=== PATIENT | female | born 1960 | race Caucasian/White ===

== ENCOUNTER → 2019-02-26 | Outpatient (CLI) | payer MEDICARE, OTHER ==
--- NOTE | 2019-02-26 14:40 | XR ---
EXAMINATION TYPE: XR cervical spine comp DATE OF EXAM: 02/26/2019 COMPARISON: NONE HISTORY: Pain TECHNIQUE: Four views are submitted. FINDINGS: The odontoid is intact. There are no compression deformities. The prevertebral soft tissue structur es are within normal limits. Hypertrophic and degenerative changes C5-6 and C6-C7 with multilevel fa cet arthropathy. Foraminal encroachment level suspected. IMPRESSION: 1. Significant degenerative disc disease C5-6 and C6-C7 with the multilevel facet arthropathy. Bilate ral foraminal encroachment suspected correlate with MRI.
--- NOTE | 2019-02-26 14:41 | XR ---
EXAM TYPE: LUMBAR SPINE X RAY SERIES COMPARISON: NONE HISTORY: Pain TECHNIQUE: 4 views are submitted. FINDINGS: Alignment is anatomic. The pedicles are intact. The transverse processes are intact. There is no s pondylolysis or spondylolisthesis. Hypertrophic and degenerative changes of the spine with facet art hropathy particularly marked at L5-S1. No compression deformities. IMPRESSION: 1. Severe facet arthropathy L5-S1 with suspected foraminal encroachment. 2. Mild multilevel degenerative disc disease.
== END | disposition home or self-care (01) ==
LOC: RADXRMAIN 13:44
PROVIDERS: ATTEND Physical Medicine & Rehabilitation
DX: M51.16 Intervertebral disc disorders with radiculopathy, lumbar region (principal); M50.322 Other cervical disc degeneration at C5-C6 level; M46.92 Unspecified inflammatory spondylopathy, cervical region
CPT/HCPCS: 72050; 72110

== ENCOUNTER → 2019-04-02 | Outpatient (CLI) | payer MEDICARE, OTHER ==
--- NOTE | 2019-04-02 09:53 | MR ---
EXAMINATION TYPE: MR lumbar spine wo con DATE OF EXAM: 04/02/2019 COMPARISON: X-rays 02/26/2019 HISTORY: Cervical DD, Lumbar DD TECHNIQUE: T1 and T2 axial and sagittal images of the lumbar spine are submitted. FINDINGS: Exam severely limited due to severe motion artifact. There is heterogeneous marrow signal w hich is nonspecific. There is no abnormal signal seen within the visualized spinal cord or paraspinal soft tissues. Nonspecific subcentimeter nodularity of the left adrenal gland. At L1-2 there is no disc herniation or canal stenosis. No foraminal encroachment. At L2-3 there is no disc herniation or canal stenosis. No foraminal encroachment. At L3-4 there is no disc herniation or canal stenosis. No foraminal encroachment. At L4-5 there is no disc herniation or canal stenosis. No foraminal encroachment. There is facet arth ropathy and ligamentum flavum hypertrophy. At L5-S1 there is disc desiccation with facet arthropathy. No focal herniation or canal stenosis. Iraida ral foramina patent. IMPRESSION: 1. Degenerative disc disease L5-S1 with facet arthropathy but no evidence of disc herniation, canal s tenosis or foraminal encroachment at any of the visualized levels. 2. Suspected small gallstone. EXAMINATION TYPE: MR cspine/lspine wo con DATE OF EXAM: 04/02/2019 COMPARISON: NONE HISTORY: Cervical DD, Lumbar DD TECHNIQUE: T1 sagittal and coronal, T2 sagittal, and gradient echo axial views of the cervical spine are submitted. FINDINGS: Exam severely limited due to motion artifact. There is asymmetry of the oropharynx on the r ight near the base of the tongue as well as the nasopharynx. Mucosal lesion in the differential diagn osis. CT soft tissue neck recommended. The cranial cervical junction is preserved. There is no abnor mal signal seen within the spinal cord or paraspinal soft tissues. At C2-3 there is degenerative change of the spine with posterior spondylosis and uncovertebral joint hypertrophy. Mild right-sided foraminal encroachment. Facet arthropathy noted. At C3-4 there is central disc bulging with no evidence of canal stenosis. Mild uncovertebral joint hy pertrophy and facet arthropathy. No foraminal encroachment. At C4-5 there is degenerative disc disease and mild central disc bulging with facet arthropathy. Unco vertebral joint hypertrophy on the right with mild right-sided encroachment. No Canal stenosis. At C5-6 there is severe degenerative disc disease with broad-based disc protrusion capped by spur. Fa cet arthropathy and uncovertebral joint hypertrophy contribute to moderate canal stenosis and moderat e to severe bilateral foraminal encroachment. At C6-7 there is central disc protrusion or herniation capped by spur with placement of the thecal sa c. Uncovertebral joint hypertrophy contribute to bilateral moderate foraminal encroachment and canal stenosis. At C7-T1 there is right paracentral disc bulging with no evidence of canal stenosis or foraminal encr oachment. IMPRESSION: 1. There is marked asymmetry of the soft tissues of the nasopharynx and oropharynx particularly on t he right. A mucosal lesion or mass in the differential diagnosis. Recommend CT soft tissue of the nec k. 2. Multilevel moderate to severe degenerative disc disease with multilevel disc bulging or protrusion s. Most marked findings are seen at C5-6 and C6-C7 with moderate canal stenosis and bilateral forami nal encroachment. 3. Right paracentral disc bulging C7-T1 with no canal stenosis or foraminal encroachment. 4. Heterogeneous appearance to the thyroid for which dedicated ultrasound of the thyroid recommended.
== END | disposition home or self-care (01) ==
LOC: RADMRIMAIN 08:20
PROVIDERS: ATTEND Family Medicine
DX: M46.96 Unspecified inflammatory spondylopathy, lumbar region (principal); M48.02 Spinal stenosis, cervical region; M51.36 Other intervertebral disc degeneration, lumbar region; M50.30 Other cervical disc degeneration, unspecified cervical region
CPT/HCPCS: 72141; 72148

== ENCOUNTER → 2019-04-27 | Outpatient (CLI) | payer MEDICARE, OTHER ==
--- NOTE | 2019-04-27 09:20 | US ---
EXAMINATION TYPE: US thyroid st tissue head/neck DATE OF EXAM: 04/27/2019 COMPARISON: NONE CLINICAL HISTORY: R93.7 abnormal MRI. GLAND SIZE: Right Lobe: cm Overall Parenchyma: Left Lobe: cm Overall Parenchyma: Isthmus Thickness: cm NODULES RIGHT: # of nodules measured on right: 1. X x cm nodule at the pole with margins; . This nodule is and shows . Prior size: x x cm 2. X x cm nodule at the pole with margins; . This nodule is and shows . Prior size: x x cm 3. X x cm nodule at the pole with margins; . This nodule is and shows . Prior size: x x cm 4. X x cm nodule at the pole with margins; . This nodule is and shows . Prior size: x x cm LEFT: # of nodules measured on left: 1. X x cm nodule at the pole with margins; . This nodule is and shows . Prior size: x x cm 2. X x cm nodule at the pole with margins; . This nodule is and shows . Prior size: x x cm 3. X x cm nodule at the pole with margins; . This nodule is and shows . Prior size: x x cm 4. X x cm nodule at the pole with margins; . This nodule is and shows . Prior size: x x cm ISTHMUS: # of nodules measured in the isthmus: 1. X x cm nodule at the pole with margins; . This nodule is and shows . Prior size: x x cm Bilateral neck scanned, no evidence of lymphadenopathy. IMPRESSION: EXAMINATION TYPE: US thyroid st tissue head/neck DATE OF EXAM: 04/27/2019 COMPARISON: NONE CLINICAL HISTORY: R93.7 abnormal MRI. GLAND SIZE: Right Lobe: 4.3 x 1.9 x 1.7 cm Overall Parenchyma: heterogenous Left Lobe: 4.3 x 2.9 x 2.2 cm Overall Parenchyma: heterogeneous Isthmus Thickness: 0.4 cm NODULES RIGHT: # of nodules measured on right: 2 1. 1.0 X 0.8 x 1.0 cm anechoic cystic nodule at the mid pole with well-defined margins. This nodul e is wider than tall and shows no intranodular vascularity. No prior 2. 1.3 X 0.8 x 0.8 cm isoechoic solid nodule at the mid-lower pole with well-defined margins. This n odule is wider than tall and shows no intranodular vascularity. No prior LEFT: # of nodules measured on left: 1 1. 2.5 X 1.9 x 2.3 cm isoechoic solid nodule at the mid pole with well-defined margins. This nodul e is wider than tall and shows intranodular vascularity. No prior ISTHMUS: # of nodules measured in the isthmus: 0 Bilateral neck scanned, no evidence of lymphadenopathy. IMPRESSION: Multinodular thyroid changes
--- NOTE | 2019-04-27 10:00 | CT ---
EXAMINATION TYPE: CT soft tissue neck w con DATE OF EXAM: 04/27/2019 COMPARISON: None HISTORY: abn MRI CT DLP: 538.1 mGycm CONTRAST: Patient injected with 100 mL of Isovue 300. TECHNIQUE: Axial images at 3 mm thick sections. Reconstructed images in the coronal plane and sagitt al plane are reviewed. FINDINGS: Limited CT sections are obtained the lung apices. There is a 0.3 cm calcification in the r ight posterior superior segment lower lobe. CT neck: [employer] spaces are normal. Paranasal sinuses and mastoid air cells are clear. Parotid glands appear normal and symmetrical. Submandibular glands, are normal. Parapharyngeal spac es are normal. No suspicious adenopathy is evident. There are scattered shotty lymphadenopathy withi n the submental space. Shotty lymphadenopathy in the submandibular regions. The hypopharynx appears within normal limits. Vocal cord level appear symmetrical. Thyroid is enlarged and heterogenous. A large slightly hypodense mass appears to be in the mid to inf erior left lobe thyroid. This was evaluated 04/27/2019 by ultrasound. There is marked right septal deviation. There is opacification of the posterior nasopharynx. Torus tubarius and fossa of Rosenmuller cannot b e evaluated. Additional evaluation for a mass within the posterior nasopharynx is recommended. IMPRESSIONS: 1. Posterior nasopharynx opacification. Prominent adenoid, neoplasm or mass is within the differentia l. Additional workup is recommended. 2. Septal deviation. 3. Calcified granuloma right lung 4. Heterogenous enlarged thyroid. This was evaluated 05/07/2019.
== END ==
LOC: RADCTMAIN 07:24
PROVIDERS: ATTEND Family Medicine
DX: E04.2 Nontoxic multinodular goiter (principal); J34.2 Deviated nasal septum; J84.10 Pulmonary fibrosis, unspecified; R93.89 Abnormal findings on diagnostic imaging of other specified body structures
CPT/HCPCS: 76536; 70491; Q9967

== ENCOUNTER 2019-05-28 09:21 | Day surgery (SDC) | payer MEDICARE, OTHER ==
[2019-05-28 09:47] VITALS: TEMP 97.9
[2019-05-28 11:32] VITALS: RESP 14
[2019-05-28 11:33] VITALS: BP 158/69; PULSE 68
--- NOTE | 2019-05-28 11:36 | US ---
ULTRASOUND GUIDED FNA THYROID BIOPSY: CLINICAL HISTORY: Thyroid nodule FINDINGS: The procedure was explained to the patient. The risks, complications, benefits and alternatives were discussed and any questions were answered. Informed consent was obtained. Patient was placed supin e on the ultrasound table and prepped and draped in the usual sterile fashion. Utilizing a 25 gauge needle, five passes were made into the requested left thyroid nodule and requested right thyroid nodu le. Aspiration with 2 passes performed into the simple appearing 1 cm cyst within the right lobe the thyroid. Patient was stable throughout the procedure. Pathology is pending. All elements of maximal barrier technique were utilized. IMPRESSION: 1. Successful ultrasound guided FNA thyroid biopsy.
== END 2019-05-28 11:20 | disposition home or self-care (01) ==
LOC: RADPROMAIN 09:21
PROVIDERS: ATTEND Otolaryngology
DX: E04.2 Nontoxic multinodular goiter (principal)
CPT/HCPCS: 10005; 10006; 88173; 88305

== ENCOUNTER 2019-06-10 06:34 | Day surgery (SDC) | payer MEDICARE, OTHER ==
[2019-06-08 10:24] VITALS: BMI 37.8
[~2019-06-10 06:34] MED LIST: DEXAMETHASONE SOD PHOSPHATE 10 MG/ML 1 ML VIAL IV ONE; DEXAMETHASONE SOD PHOSPHATE 4 MG/ML 1 ML VIAL IV ONE; FAMOTIDINE 20 MG/2 ML VIAL IV ONE; HYDROmorphone 0.5 MG/0.5 ML SYRINGE IVP PRN; LACTATED RINGERS 1,000 ML IV SCH; LIDOCAINE 1% 20 ML VIAL (10MG/ML) FOR IV START INTRADERMA PRN; ONDANSETRON 4 MG/2 ML VIAL IVP ONE
[2019-06-10] MEDS: OXYMETAZOLINE 0.05% NASL SPRAY 1 SPRAY BOTTLE NASAL ONE ×5 (06:50→07:11)
[2019-06-10] MEDS ORDERED: fentaNYL (PF) 50 MCG/ML 2 ML AMP ONE (07:22)
[2019-06-10] MEDS ORDERED: NEOSTIGMINE 1 MG/ML 10 ML VIAL ONE (07:22)
[2019-06-10] MEDS ORDERED: ROCURONIUM BROMIDE 10 MG/ML 10 ML VIAL IV ONE (07:22)
[2019-06-10] MEDS ORDERED: GLYCOPYRROLATE 0.2 MG/ML 2 ML VIAL ONE (07:22)
[2019-06-10] MEDS ORDERED: PROPOFOL 10 MG/ML 20 ML VIAL IV ONE (07:22)
[2019-06-10] MEDS ORDERED: MIDAZOLAM 2 MG/2 ML VIAL ONE (07:22)
[2019-06-10] MEDS ORDERED: LIDOCAINE 1% INJ 10MG/ML (20 ML MDV) ONE (07:22)
--- NOTE | 2019-06-10 07:58 | P.OP ---
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 Postoperative Diagnosis: Same Procedure(s) Performed: Adenoidectomy/nasopharyngeal biopsy Anesthesia: MECCAA Surgeon: Ravi Oliveira Estimated Blood Loss (ml): 5 Pathology: other (Nasopharyngeal tissue) Condition: stable Disposition: PACU Indications for Procedure: This 59-year-old white female who was evaluated with computed tomography scan of the neck for neck mass and was noted of thyroid nodules which were already biopsied and were benign and also nasopharyngeal tissue which was hypertrophied Operative Findings: Lymphoid appearing nasopharyngeal tissue this was located superiorly and laterally in the nasopharynx Description of Procedure: Patient was brought in the operative suite and placed in a supine position. Patient underwent induction of general anesthesia with oral endotracheal intubation with out difficulty. The patient was prepped and draped in usual aseptic fashion. McIvor mouthgag was placed and soft palate was palpated and no submucous cleft was noted. Red Sanchez catheter was placed through the left nasal cavity and pulled through the oropharynx for soft palate retraction. Nasal fractures examined with mirror exam. Nasopharyngeal biopsy was taken with an adenoid punch. The remainder of the adenoid appearing tissue was then ablated with suction cautery clearing the posterior choanae. Excellent hemostasis was noted. The patient was then suctioned in oral gastric fashion and the McIvor mouth gag and catheter was removed. The patient was then allowed to emerge from general anesthesia having tolerated procedure well was extubated in the operating suite and transferred to the postop recovery area in satisfactory condition.
[2019-06-10 08:11] VITALS: TEMP 97.2
[2019-06-10 08:40] VITALS: RESP 16
[2019-06-10 08:56] VITALS: PULSE 65
[2019-06-10 09:01] VITALS: BP 183/84
== END 2019-06-10 09:11 | disposition home or self-care (01) ==
LOC: OR 06:34
PROVIDERS: ATTEND Otolaryngology
DX: J35.2 Hypertrophy of adenoids (principal); D10.6 Benign neoplasm of nasopharynx; I10 Essential (primary) hypertension; Z79.899 Other long term (current) drug therapy; Z82.61 Family history of arthritis; Z83.3 Family history of diabetes mellitus; Z96.659 Presence of unspecified artificial knee joint
CPT/HCPCS: 88305; 42831; J2250; J1100; J2710; J2405; J0690; J2001; J3010; J2704

== ENCOUNTER → 2020-01-26 | Outpatient (CLI) | payer MEDICARE, OTHER ==
--- NOTE | 2020-01-28 08:37 | MM ---
Reason for exam: screening (asymptomatic). Last mammogram was performed 5 years ago. History: Patient is postmenopausal. Physical Findings: A clinical breast exam by your physician is recommended on an annual basis and results should be correlated with mammographic findings. MG Screening Mammo w CAD Bilateral CC and MLO view(s) were taken. Prior study comparison: January 27, 2015, bilateral MG screening mammo w CAD. December 25, 2013, bilateral MG screening mammo w CAD. The breast tissue is heterogeneously dense. This may lower the sensitivity of mammography. There is chronic nodularity in the right breast. Lower inner quadrant nodularity on the right breast is more pronounced. ASSESSMENT: Incomplete: need additional imaging evaluation, BI-RAD 0 RECOMMENDATION: Special view mammogram of the right breast. (3D) If lesion persists on supplemental views, image directed ultrasound is recommended. [facility] will attempt to contact patient to return for supplemental views and ultrasound if indicated.
== END | disposition home or self-care (01) ==
LOC: RADMAMWWP 15:08
PROVIDERS: ATTEND Family Medicine
DX: Z12.31 Encounter for screening mammogram for malignant neoplasm of breast (principal)
CPT/HCPCS: 77067

== ENCOUNTER → 2020-01-29 | Outpatient (CLI) | payer MEDICARE, OTHER ==
--- NOTE | 2020-01-29 10:33 | MM ---
Reason for exam: additional evaluation requested from abnormal screening. Last mammogram was performed less than 1 month ago. History: Patient is postmenopausal. Taking estrogen for 5 years beginning at age 54. Physical Findings: Nurse did not find any significant physical abnormalities on exam. MG 3D Work Up W/Cad RT Spot compression CC and spot compression MLO view(s) were taken of the right breast. Prior study comparison: January 26, 2020, bilateral MG screening mammo w CAD. January 27, 2015, bilateral MG screening mammo w CAD. There are scattered fibroglandular densities. There is no discrete abnormality. These results were verbally communicated with the patient and result sheet given to the patient on 01/29/20. ASSESSMENT: Benign, BI-RAD 2 RECOMMENDATION: Return to routine screening mammogram schedule for both breasts.
== END | disposition home or self-care (01) ==
LOC: RADMAMWWP 09:07
PROVIDERS: ATTEND Family Medicine
DX: R92.8 Other abnormal and inconclusive findings on diagnostic imaging of breast (principal)
CPT/HCPCS: 77065; G0279; 77061

== ENCOUNTER → 2020-03-22 | Outpatient (CLI) | payer MEDICARE, OTHER ==
--- NOTE | 2020-03-22 14:02 | US ---
EXAMINATION TYPE: US thyroid st tissue head/neck DATE OF EXAM: 03/22/2020 COMPARISON: 04/27/2019 CLINICAL HISTORY: 59-year-old female E04.1 Thyroid nodule. Prior FNA. TECHNIQUE: Multiple sonographic images of the thyroid gland are obtained. FINDINGS: GLAND SIZE: Right Lobe: 4.3 x1.8 c 1.7 cm Overall Parenchyma: heterogenous Left Lobe: 4.2 x 2.4 x 2.5 cm Overall Parenchyma: heterogeneous Isthmus Thickness: 0.4cm NODULES RIGHT: # of nodules measured on right: 2 largest of multiple nodules 1. 0.7 X 0.7 x 0.5 cm benign colloid cyst. This nodule is wider than tall and shows no intranodular vascularity. Prior size: 1.0 x 1.0 x .7 cm 2. 1.1 X 0.9 x 0.8 cm hypoechoic solid nodule with poorly defined margins. This nodule is wider maria de jesus n tall and shows no intranodular vascularity. Prior size: 1.3 x 0.8 x 0.8 cm LEFT: # of nodules measured on left: 1 1. 2.9 x x 2.3 x 2.0 cm hypoechoic mixed nodule at the mid pole with well-defined margins. This n odule is wider than tall and shows intranodular vascularity. Prior size: 2.3 x 2.5 x 2.1 cm ISTHMUS: # of nodules measured in the isthmus: 0 Bilateral neck scanned: inferior to left thyroid a echogenic solid oval nodule is noted = 0.5 x 0.6 x 0.5cm. Possible lymph node with thin cortex and prominent fatty hilum. Follow-up can be performed. IMPRESSION: 1. Solid nodule in the right is stable at 1.1 x 0.9 cm (versus 1.3 x 0.8 cm, previously). 2. Large nodule on the left is slightly larger at 2.9 x 2.3 cm (versus 2.5 x 2.3 cm, previously). 3. A 6 mm echogenic nodule inferior to the left thyroid lobe could represent a lymph node within froilan ex and prominent fatty hilum. As this was not identified previously, short interval follow-up is guillermo mmended to reassess. Consider follow-up in 6 months.
== END | disposition home or self-care (01) ==
LOC: RADUSWWP 12:20
PROVIDERS: ATTEND Otolaryngology
DX: E04.1 Nontoxic single thyroid nodule (principal)
CPT/HCPCS: 76536

== ENCOUNTER 2020-05-25 15:07 | Emergency (ER) | payer MEDICARE, OTHER ==
--- NOTE | 2020-05-25 15:37 | ED ---
General Adult HPI - General Chief complaint: Recheck/Abnormal Lab/Rx Stated complaint: not sleeping Time Seen by Provider: 05/25/20 15:18 Source: patient, RN notes reviewed Mode of arrival: wheelchair Limitations: no limitations - History of Present Illness Initial comments: Patient is a pleasant 59-year-old female presenting to the emergency department with anxiety problems. Symptoms have been occurring for the past several days. Symptoms occur frequently while patient is sleeping however other times as well. Patient does have history of similar symptoms previously and diagnosed with anxiety. Patient states at times she does get shortness of breath only associated with her anxiety, no other times. Patient is currently symptom-free at this time. Patient denies ever having any chest discomfort at all. No leg pain or leg swelling. No cough or fevers. Symptoms do not worsen with exertion. - Related Data Home Medications Medication Instructions Recorded Confirmed Aspirin 81 mg PO DAILY 05/14/19 05/25/20 Lisinopril-Hctz 10-12.5 mg 1 tab PO DAILY 05/14/19 05/25/20 [Zestoretic 10-12.5] oxyCODONE HCL/ACETAMINOPHEN 1 tab PO QID PRN 05/14/19 05/25/20 [Percocet 10-325 mg] Estradiol 0.5 mg PO HS 05/25/20 05/25/20 Allergies Allergy/AdvReac Type Severity Reaction Status Date / Time No Known Allergies Allergy Verified 05/25/20 15:57 Review of Systems ROS Statement: Those systems with pertinent positive or pertinent negative responses have been documented in the HPI. ROS Other: All systems not noted in ROS Statement are negative. Constitutional: Denies: fever Eyes: Denies: eye pain ENT: Denies: ear pain Respiratory: Reports: as per HPI. Denies: cough Cardiovascular: Denies: chest pain Endocrine: Denies: fatigue Gastrointestinal: Denies: abdominal pain Genitourinary: Denies: dysuria Musculoskeletal: Denies: back pain Skin: Denies: rash Neurological: Denies: weakness Psychiatric: Reports: anxiety Past Medical History Past Medical History: Asthma, COPD, Musculoskeletal Disorder, Osteoarthritis (OA) Additional Past Medical History / Comment(s): SCOLIOSIS, History of Any Multi-Drug Resistant Organisms: None Reported Past Surgical History: Hysterectomy Additional Past Surgical History / Comment(s): TOTAL LEFT KNEE. hysterectomey 0 12/17/2014 Past Anesthesia/Blood Transfusion Reactions: No Reported Reaction Past Psychological History: Anxiety, Panic Disorder Smoking Status: Never smoker Past Alcohol Use History: None Reported Past Drug Use History: None Reported - Past Family History Father Family Medical History: Cancer General Exam Limitations: no limitations General appearance: alert, in no apparent distress Head exam: Present: normocephalic Eye exam: Present: normal appearance Neck exam: Present: normal inspection Respiratory exam: Present: normal lung sounds bilaterally Cardiovascular Exam: Present: regular rate, normal rhythm Expanded Peripheral pulses: 2+: Radial (R), Radial (L), Posterior Tibialis (R), Posterior Tibialis (L) GI/Abdominal exam: Present: soft. Absent: tenderness Extremities exam: Present: normal inspection. Absent: pedal edema, calf tenderness Neurological exam: Present: alert Psychiatric exam: Present: normal affect, normal mood Skin exam: Present: normal color Course Vital Signs 05/25/20 05/25/20 05/25/20 15:10 16:00 17:00 Temperature 99.2 F Pulse Rate 97 81 79 Respiratory 18 20 18 Rate Blood Pressure 145/84 141/65 140/79 O2 Sat by Pulse 94 L 98 97 Oximetry EKG Findings - EKG Comments: EKG Findings:: Sinus rhythm at 84. Premature a chill complex present. GA 144. QRS 94. QT 372. QTC 439. Normal axis. Normal QRS. No acute ST change. Medical Decision Making - Medical Decision Making Patient reevaluated and resting comfortably in bed. Patient remains symptom- free. Patient updated on results and is happy to be discharged home. - Lab Data Result diagrams: 05/25/20 15:47 05/25/20 15:47 Lab Results 05/25/20 05/25/20 05/25/20 Range/Units 15:47 15:47 15:47 WBC 11.0 H (3.8-10.6) k/uL RBC 5.14 (3.80-5.40) m/uL Hgb 12.4 (11.4-16.0) gm/dL Hct 37.4 (34.0-46.0) % MCV 72.8 L (80.0-100.0) fL MCH 24.2 L (25.0-35.0) pg MCHC 33.2 (31.0-37.0) g/dL RDW 13.8 (11.5-15.5) % Plt Count 250 (150-450) k/uL MPV 7.7 Neutrophils % 76 % Lymphocytes % 16 % Monocytes % 4 % Eosinophils % 2 % Basophils % 1 % Neutrophils # 8.3 H (1.3-7.7) k/uL Lymphocytes # 1.8 (1.0-4.8) k/uL Monocytes # 0.5 (0-1.0) k/uL Eosinophils # 0.2 (0-0.7) k/uL Basophils # 0.1 (0-0.2) k/uL Microcytosis Slight PT 10.0 (9.0-12.0) sec INR 0.9 (<1.2) APTT 21.5 L (22.0-30.0) sec D-Dimer 0.90 H (<0.60) mg/L FEU Sodium 139 (137-145) mmol/L Potassium 4.0 (3.5-5.1) mmol/L Chloride 103 (98-107) mmol/L Carbon Dioxide 29 (22-30) mmol/L Anion Gap 7 mmol/L BUN 16 (7-17) mg/dL Creatinine 0.70 (0.52-1.04) mg/dL Est GFR (CKD-EPI)AfAm >90 (>60 ml/min/1.73 sqM) Est GFR (CKD-EPI)NonAf >90 (>60 ml/min/1.73 sqM) Glucose 155 H (74-99) mg/dL Plasma Lactic Acid Ronak (0.7-2.0) mmol/L Calcium 10.1 (8.4-10.2) mg/dL Total Bilirubin 0.7 (0.2-1.3) mg/dL AST 48 H (14-36) U/L ALT 36 H (4-34) U/L Alkaline Phosphatase 82 (38-126) U/L Troponin I (0.000-0.034) ng/mL NT-Pro-B Natriuret Pep pg/mL Total Protein 8.0 (6.3-8.2) g/dL Albumin 4.4 (3.5-5.0) g/dL 05/25/20 05/25/20 05/25/20 Range/Units 15:47 15:47 15:47 WBC (3.8-10.6) k/uL RBC (3.80-5.40) m/uL Hgb (11.4-16.0) gm/dL Hct (34.0-46.0) % MCV (80.0-100.0) fL MCH (25.0-35.0) pg MCHC (31.0-37.0) g/dL RDW (11.5-15.5) % Plt Count (150-450) k/uL MPV Neutrophils % % Lymphocytes % % Monocytes % % Eosinophils % % Basophils % % Neutrophils # (1.3-7.7) k/uL Lymphocytes # (1.0-4.8) k/uL Monocytes # (0-1.0) k/uL Eosinophils # (0-0.7) k/uL Basophils # (0-0.2) k/uL Microcytosis PT (9.0-12.0) sec INR (<1.2) APTT (22.0-30.0) sec D-Dimer (<0.60) mg/L FEU Sodium (137-145) mmol/L Potassium (3.5-5.1) mmol/L Chloride (98-107) mmol/L Carbon Dioxide (22-30) mmol/L Anion Gap mmol/L BUN (7-17) mg/dL Creatinine (0.52-1.04) mg/dL Est GFR (CKD-EPI)AfAm (>60 ml/min/1.73 sqM) Est GFR (CKD-EPI)NonAf (>60 ml/min/1.73 sqM) Glucose (74-99) mg/dL Plasma Lactic Acid Ronak 2.0 (0.7-2.0) mmol/L Calcium (8.4-10.2) mg/dL Total Bilirubin (0.2-1.3) mg/dL AST (14-36) U/L ALT (4-34) U/L Alkaline Phosphatase (38-126) U/L Troponin I <0.012 (0.000-0.034) ng/mL NT-Pro-B Natriuret Pep 112 pg/mL Total Protein (6.3-8.2) g/dL Albumin (3.5-5.0) g/dL - Radiology Data Radiology results: report reviewed (CT angios chest shows no pulmonary embolism. Cardiomegaly. No evidence of acute lung disease.), image reviewed (Chest x-ray shows cardiomegaly. No acute process.) Disposition Clinical Impression: Dyspnea, Anxiety Disposition: HOME SELF-CARE Condition: Stable Instructions (If sedation given, give patient instructions): Dyspnea (ED), Generalized Anxiety Disorder (ED) Additional Instructions: Please follow-up with primary care physician in the next day or 2 for recheck. Return for difficulty breathing, chest pain, fevers, worsening or change in symptoms or other concerns. Is patient prescribed a controlled substance at d/c from ED?: No Referrals: Taylor Villarreal MD [Primary Care Provider] - 1-2 days Time of Disposition: 17:30
[2020-05-25 15:58] LABS: Basophils # (A) 0.1 k/uL (0-0.2); Basophils % (A) 1 %; Eosinophils # (A) 0.2 k/uL (0-0.7); Eosinophils % (A) 2 %; HCT 37.4 % (34.0-46.0); HGB 12.4 gm/dL (11.4-16.0); Lymphocytes # (A) 1.8 k/uL (1.0-4.8); Lymphocytes % (A) 16 %; MCH 24.2 pg (25.0-35.0); MCHC 33.2 g/dL (31.0-37.0); MCV 72.8 fL (80.0-100.0); Mean Platelet Volume 7.7; Microcytosis Slight; Monocytes # (A) 0.5 k/uL (0-1.0); Monocytes % (A) 4 %; Neutrophils # (A) 8.3 k/uL (1.3-7.7); Neutrophils % (A) 76 %; Platelet Count 250 k/uL (150-450); RBC 5.14 m/uL (3.80-5.40); RDW 13.8 % (11.5-15.5)
--- NOTE | 2020-05-25 16:01 | XR ---
EXAMINATION TYPE: XR chest 2V DATE OF EXAM: 05/25/2020 COMPARISON: Chest x-ray January 22, 2013 HISTORY: History of COPD with difficulty in breathing. TECHNIQUE: Frontal and lateral views of the chest are obtained. FINDINGS: There is chronic parenchymal change without suspicious new focal air space opacity, pleura l effusion, or pneumothorax seen. The cardiac silhouette size is stable and enlarged. The osseous structures are intact. IMPRESSION: Cardiomegaly without acute pulmonary process.
[2020-05-25 16:08] LABS: ALT 36 U/L (4-34); AST 48 U/L (14-36); African American GFR (CKD) >90 (>60 ml/min/1.73 sqM); Albumin 4.4 g/dL (3.5-5.0); Alkaline Phosphatase 82 U/L (38-126); Anion Gap 7 mmol/L; Blood Urea Nitrogen 16 mg/dL (7-17); Calcium 10.1 mg/dL (8.4-10.2); Carbon Dioxide 29 mmol/L (22-30); Chloride 103 mmol/L (98-107); Glucose 155 mg/dL (74-99); Non-African American GFR(CKD) >90 (>60 ml/min/1.73 sqM); Sodium 139 mmol/L (137-145); Total Bilirubin 0.7 mg/dL (0.2-1.3)
[2020-05-25 16:37] LABS: INR 0.9 (<1.2)
[2020-05-25 16:39] LABS: D-Dimer 0.9 mg/L FEU (<0.60); Partial Thromboplastin Time 21.5 sec (22.0-30.0)
--- NOTE | 2020-05-25 17:18 | CT ---
EXAMINATION TYPE: CT angio chest DATE OF EXAM: 05/25/2020 COMPARISON: None HISTORY: No chest complaints at time of service CT DLP: 467.4 mGycm Automated exposure control for dose reduction was used. CONTRAST: Performed with IV Contrast, patient injected with 100 mL of Isovue 370. Images obtained from the thoracic inlet to the diaphragm with IV contrast and 3-D post processed imag es. The lungs are clear of consolidation. There is no pleural effusion. Heart is slightly enlarged. There is no pericardial effusion. There is diffuse fatty infiltration of the liver. There is 5 mm calcified granuloma in the superior segment right lower lobe. There are no hilar masses. There is no mediastinal adenopathy. Thoracic aorta is intact. There is no aneurysm or dissection. The ascending aorta measures 3.2 cm. There is normal contrast opacification of the pulmonary arteries. There are no filling defects. There is some spurring in the thoracic spine. There is no compression fracture. The ribs appear intac t. IMPRESSION: No evidence of pulmonary embolism. Cardiomegaly. No evidence of acute lung disease.
[2020-05-25 17:22] VITALS: BP 140/79; PULSE 79; RESP 18
[2020-05-25 17:36] VITALS: TEMP 98.4
== END 2020-05-25 17:35 | disposition home or self-care (01) ==
LOC: EC 15:07
DX: F41.9 Anxiety disorder, unspecified (principal); M19.90 Unspecified osteoarthritis, unspecified site; Z79.890 Hormone replacement therapy
CPT/HCPCS: 36415; 93005; 85379; 83880; 80053; 83605; 84484; 85025; 85610; 85730; 71046; 71275; 99284; Q9967

== ENCOUNTER → 2021-03-07 | Outpatient (CLI) | payer MEDICARE, OTHER ==
--- NOTE | 2021-03-07 09:48 | CT ---
EXAMINATION TYPE: CT chest wo con DATE OF EXAM: 03/07/2021 COMPARISON: CT 11/22/2020, patient's abnormal chest x-ray is unavailable for correlation HISTORY: Abnormal CXR, Z87.[address] DLP: 430.30 mGycm. Automated Exposure Control for Dose Reduction was Utilized. TECHNIQUE: CT scan of the thorax is performed without IV contrast. FINDINGS: Lack of contrast could compromise sensitivity. LUNGS: The lungs are remarkable for subpleural nodule in the right upper lobe axial image 16 which is stable compared to prior exam and measures only 3 to 4 mm in size. Calcified nodule is also present in the superior segment of the right lower lobe and is stable. Some additional subpleural nodularity present axial image 35 left lower lobe, axial image 38 right lower lobe posteriorly only 2 to 3 mm in size. There is no pleural effusion or pneumothorax seen. The tracheobronchial tree is patent. MEDIASTINUM: Lack of IV contrast is noted to limit evaluation for mediastinal and especially hilar ad enopathy. There are no definitive greater than 1 cm hilar or mediastinal lymph nodes. Calcified righ t hilar nodes are present. No cardiomegaly or pericardial effusion is seen. The heart is enlarged. OTHER: Postop changes are noted at the gastroesophageal junction level. IMPRESSION: Old granulomatous disease, follow-up could be performed to assess for stability in one ye ar. Cardiomegaly. Noncontrast exam.
--- NOTE | 2021-03-08 10:41 | MM ---
Reason for exam: screening (asymptomatic). Last mammogram was performed 1 year and 1 month ago. History: Patient is postmenopausal. Taking estrogen for 5 years beginning at age 54. Physical Findings: A clinical breast exam by your physician is recommended on an annual basis and results should be correlated with mammographic findings. MG Screening Mammo w CAD Bilateral CC and MLO view(s) were taken. Prior study comparison: January 29, 2020, right breast MG 3d work up w/cad RT. January 26, 2020, bilateral MG screening mammo w CAD. The breast tissue is heterogeneously dense. This may lower the sensitivity of mammography. Finding #1: There is a 7 mm equal density (isodense) mass in the subareolar position of the left breast. Finding #2: There are typically benign calcifications in both breasts. There is a chronic nodularity in the right breast, stable. ASSESSMENT: Incomplete: need additional imaging evaluation, BI-RAD 0 RECOMMENDATION: Special view mammogram of the left breast. If lesion persists on supplemental views, image directed ultrasound is recommended. [facility] will attempt to contact patient to return for supplemental views and ultrasound if indicated.
== END | disposition home or self-care (01) ==
LOC: RADCTMAIN 06:51
PROVIDERS: ATTEND Family Medicine
DX: J98.4 Other disorders of lung (principal); Z12.31 Encounter for screening mammogram for malignant neoplasm of breast
CPT/HCPCS: 71250; 77067; 94060; 94726; 94729

== ENCOUNTER → 2021-03-15 | Outpatient (CLI) | payer MEDICARE, OTHER ==
[2021-03-15 11:29] VITALS: BMI 37.7
== END ==
LOC: DBWHC3 09:47
PROVIDERS: ATTEND Family Medicine
DX: E11.65 Type 2 diabetes mellitus with hyperglycemia (principal)

== ENCOUNTER → 2021-03-17 | Outpatient (CLI) | payer MEDICARE, OTHER ==
--- NOTE | 2021-03-17 12:00 | MM ---
Reason for exam: additional evaluation requested from abnormal screening. Last mammogram was performed less than 1 month ago. History: Patient is postmenopausal. Taking estrogen for 5 years beginning at age 54. Physical Findings: Nurse did not find any significant physical abnormalities on exam. MG Work Up Mamm w CAD LT Spot compression CC, spot compression MLO, and ML view(s) were taken of the left breast. Prior study comparison: March 07, 2021, bilateral MG screening mammo w CAD. January 26, 2020, bilateral MG screening mammo w CAD. The breast tissue is heterogeneously dense. This may lower the sensitivity of mammography. There is no discrete abnormality including area of concern on compression. These results were verbally communicated with the patient and result sheet given to the patient on 03/17/21. ASSESSMENT: Probably benign, BI-RAD 3 RECOMMENDATION: Follow-up diagnostic mammogram of the left breast in 6 months.
== END | disposition home or self-care (01) ==
LOC: RADMAMWWP 10:04
PROVIDERS: ATTEND Family Medicine
DX: R92.8 Other abnormal and inconclusive findings on diagnostic imaging of breast (principal); Z78.0 Asymptomatic menopausal state
CPT/HCPCS: 77065

== ENCOUNTER → 2021-07-06 | Outpatient (CLI) | payer MEDICARE, OTHER ==
--- NOTE | 2021-07-06 15:22 | US ---
EXAMINATION TYPE: US thyroid st tissue head/neck DATE OF EXAM: 07/06/2021 COMPARISON: NONE CLINICAL HISTORY: 61-year-old female E04.1 thyroid nodule. TECHNIQUE: Multiple sonographic images of the thyroid gland are obtained. FINDINGS: GLAND SIZE: Right Lobe: 5.3 x 2.2 x 2.2 cm Overall Parenchyma: homogenous Left Lobe: 4.4 x 3.0 x 2.3 cm Overall Parenchyma: heterogeneous Isthmus Thickness: cm NODULES RIGHT: # of nodules measured on right: 2 1. .9 X .6 x .9 cm, benign colloid cyst. Prior size: .7 x .5 x .6 cm 2. 1.5 X 1.0 x 1.3 cm, lower , solid or almost completely solid, hypoechoic TR 4 nodule, which is w ider than tall, with ill-defined margins, without echogenic foci. Prior size: 1.1 x .8 x .9 cm cm LEFT: # of nodules measured on left: 1 1. 2.8 X 1.8 x 2.3 cm, mid mid, solid or almost completely solid, hypoechoic TR 4 nodule, which is wider than tall, with smooth margins, without echogenic foci. Prior size: 2.9 x 2.0 x 2.3 cm 2. .8 X .5 x .8 cm, lower , , hyperechoic TR 3 nodule, which is wider than tall, with smooth margin s, without echogenic foci. Prior size: .5 x .5 x .6 cm ISTHMUS: # of nodules measured in the isthmus: 0 Bilateral neck scanned, no evidence of lymphadenopathy. IMPRESSION: 1. The solid TR4 nodule on the right is slightly larger at 1.5 x 1.3 cm (versus 1.1 x 0.9 cm, previou sly). FNA could be performed. 2. The solid TR for nodule in the left is stable to smaller at 2.8 cm versus 2.9 cm, previously. 3. Solid TR 3 nodule in the left is slightly larger at 8 x 8 mm (versus 6 x 5 mm, previously).
== END | disposition home or self-care (01) ==
LOC: RADUSWWP 12:13
PROVIDERS: ATTEND Otolaryngology
DX: E04.2 Nontoxic multinodular goiter (principal)
CPT/HCPCS: 76536

== ENCOUNTER → 2022-02-07 | Outpatient (CLI) | payer MEDICARE, OTHER ==
--- NOTE | 2022-02-07 13:49 | MM ---
Reason for Exam: Follow-up at short interval from prior study. Last screening mammogram was performed 11 month(s) ago. Patient History: Menarche at age 11. First Full-Term at age 24. Left ovary removed at age 54. Right ovary removed at age 54. Hysterectomy at age 54. Postmenopausal. Currently using Estrogen, beginning at age 54 for 5 years. Risk Values: Kesha 5 year model risk: 1.7%. NCI Lifetime model risk: 7.7%. Prior Study Comparison: 01/29/2020 Right Diagnostic Mammogram, [facility]. 03/07/2021 Bilateral Screening Mammogram, [facility]. 03/17/2021 Left Diagnostic Mammogram, [facility]. Tissue Density: Left: The breast tissue is heterogeneously dense. This may lower the sensitivity of mammography. Findings: Analyzed By CAD. No evidence for mass or suspicious cluster of calcifications. Overall Assessment: Benign, BI-RAD 2 Management: Screening Mammogram of both breasts in 3 months. A clinical breast exam by your physician is recommended on an annual basis and results should be correlated with mammographic findings. This exam should not preclude additional follow-up of suspicious palpable abnormalities. Results were given to the patient verbally at the time of exam. Electronically signed and approved by: Jose M Barger M.D. Radiologis
== END | disposition home or self-care (01) ==
LOC: RADMAMWWP 13:02
PROVIDERS: ATTEND Family Medicine
DX: R92.8 Other abnormal and inconclusive findings on diagnostic imaging of breast (principal); Z78.0 Asymptomatic menopausal state
CPT/HCPCS: 77065; G0279; 77061

== ENCOUNTER → 2022-05-21 | Outpatient (CLI) | payer OTHER ==
--- NOTE | 2022-05-21 16:03 | MM ---
Reason for Exam: Screening (asymptomatic). Last mammogram was performed 1 year(s) and 3 month(s) ago. Patient History: Menarche at age 11. First Full-Term at age 24. Left ovary removed at age 54. Right ovary removed at age 54. Hysterectomy at age 54. Postmenopausal. Currently using Estrogen, beginning at age 54 for 5 years. Risk Values: Kesha 5 year model risk: 1.7%. NCI Lifetime model risk: 7.7%. Prior Study Comparison: 03/07/2021 Bilateral Screening Mammogram, [facility]. 03/17/2021 Left Diagnostic Mammogram, [facility]. 02/07/2022 Left MG 3D diag mammo w/cad , [facility]. Tissue Density: The breast tissue is heterogeneously dense. This may lower the sensitivity of mammography. Findings: Analyzed By CAD. Stable 7 mm round mass in the anterior left breast from several prior mammograms. Benign appearing bilateral axillary lymph nodes are redemonstrated. There is no suspicious new group of microcalcifications or new suspicious mass in either breast. Overall Assessment: Benign, BI-RAD 2 Management: Screening Mammogram of both breasts in 1 year. A clinical breast exam by your physician is recommended on an annual basis and results should be correlated with mammographic findings. Electronically signed and approved by: Michele Stockton M.D.
--- NOTE | 2022-05-21 17:05 | BD ---
EXAMINATION TYPE: Axial Bone Density DATE OF EXAM: 05/21/2022 COMPARISON: NONE CLINICAL HISTORY: 61 years year old Female. ICD-10 CODE: N951 POST MENOPAUSAL SYMPTOMS Height: 61.5 Weight: 201.6 FRAX RISK QUESTIONS: Alcohol (3 or more units per day): NO Family History (Parent hip fracture): NO Glucocorticoids (More than 3mos): NO History of Fracture in Adulthood: NO Secondary Osteoporosis: 1. Type 1 Diabetes: NO 2. Hyperthyroidism: NO 3. Menopause before 45: YES 4. Malnutrition: NO 5. Chronic liver disease: NO Rheumatoid Arthritis: NO Current Tobacco Use: NO RISK FACTORS HISTORY OF: Hip Fracture (Right/Left): NO Spine Fracture: NO History of Wrist Fracture: NO Surgery to Spine/Hip(right/left)/Wrist (right/left): NO Family History of Osteoporosis: NO Active: NO Diet low in dairy products/other sources of calcium: NO Postmenopausal woman: YES Take estrogen and/or progesterone medications: YES How long: PAST 10 YEARS Lost more than 2 inches in height since high school: NO Frequent falls: NO Poor Health: NO Hyperparathyroidism: NO Adrenal Insufficiency: NO MEDICATIONS: Prednisone or other steroids:NO Thyroid Medications: NO Osteoporosis Medications: NO Additional Medications: BP MEDS, CHOLESTEROL, DEPRESSION MEDS, EXAM MEASUREMENTS: Bone mineral densitometry was performed using the [employer] System. Bone mineral density as measured about the Lumbar spine is: ----- L1-L4(G/cm2): 1.143 T Score Values are as follows: ----- L1: -1.5 ----- L2: -1.3 ----- L3: 0.5 ----- L4: 0.5 ----- L1-L4: -0.3 BASELINE STUDY Bone mineral density about the R hip (g/cm2): 0.912 Bone mineral density about the L hip (g/cm2): 0.913 T Score values are as follows: -----R Neck: -0.9 -----L Neck: -0.9 -----R Total: 0.0 -----L Total: 0.1 BASELINE STUDY FRAX%s: The graph provided illustrates a 6.9% chance for a major osteoporotic fx and a 0.4% chance fo r the hips probability for fx in 10 years time. IMPRESSION: Normal (Values between +1 and -1 indicate normal bone mass). Consider repeating this study in 5 year s or sooner if there is some new clinical indication. NOTE: T-SCORE=SD OF THE YOUNG ADULT MEAN.
== END | disposition home or self-care (01) ==
LOC: RADMAMWWP 14:56
PROVIDERS: ATTEND Obstetrics & Gynecology
DX: Z12.31 Encounter for screening mammogram for malignant neoplasm of breast (principal); M85.89 Other specified disorders of bone density and structure, multiple sites; Z78.0 Asymptomatic menopausal state
CPT/HCPCS: 77063; 77067; 77080

== ENCOUNTER → 2022-05-31 | Outpatient (CLI) | payer MEDICARE, OTHER ==
--- NOTE | 2022-05-31 13:42 | CT ---
EXAMINATION TYPE: CT chest wo con DATE OF EXAM: 05/31/2022 COMPARISON: 03/07/2021 HISTORY: abnormal findings follow up CT DLP: 546 mGycm. Automated Exposure Control for Dose Reduction was Utilized. TECHNIQUE: CT scan of the thorax is performed without IV contrast. FINDINGS: LUNGS: The lungs are grossly clear, there is no concerning consolidation or pneumonia identified. T here is no pleural effusion or pneumothorax seen. The tracheobronchial tree is patent. Within the left lower lobe there is a 2 mm subpleural nodule axial image 35 stable. within the right middle is a 3 mm nodule axial image 36 stable Within the left lower lobe there is a 2 mm nodule axial image 39 stable Within the superior segment right lower lobe there is a calcified 4 mm granuloma Within the right upper lobe axial image 15 stable. Stable 1 mm subpleural nodule right lower lobe. MEDIASTINUM: Lack of IV contrast is noted to limit evaluation for mediastinal and especially hilar ad enopathy. There are no definitive greater than 1 cm hilar or mediastinal lymph nodes. Calcified righ t hilar node. No cardiomegaly or pericardial effusion is seen. Mild coronary artery calcification see n. OTHER: Enlargement of the left lobe thyroid. Splenic granuloma noted. Question surgical clips in the epigastrium. Hypertrophic and degenerative changes of the spine. IMPRESSION: 1. Stable subcentimeter bilateral pulmonary nodules too small to characterize but likely benign. 2. Left thyroid lobe enlargement.
== END | disposition home or self-care (01) ==
LOC: RADCTMAIN 12:43
PROVIDERS: ATTEND Family Medicine
DX: E04.9 Nontoxic goiter, unspecified (principal); R91.8 Other nonspecific abnormal finding of lung field
CPT/HCPCS: 71250

== ENCOUNTER → 2022-08-10 | Outpatient (CLI) | payer MEDICARE, OTHER ==
--- NOTE | 2022-08-10 14:31 | US ---
EXAMINATION TYPE: US thyroid st tissue head/neck DATE OF EXAM: 08/10/2022 COMPARISON: 07/06/2021 CLINICAL HISTORY: E04.2 NONTOXIC MULTINODULAR GOITER. GLAND SIZE: Right Lobe: 4.1 x 1.7 x 1.6 cm Overall Parenchyma: homogenous Left Lobe: 4.2 x 2.6 x 1.6 cm Overall Parenchyma: homogeneous Isthmus Thickness: 0.7 cm NODULES RIGHT: # of nodules measured on right: 3 1. 0.9 X 0.6 x 0.9 cm, upper , , anechoic nodule, which is wider than tall, with smooth margins, wi thout echogenic foci. Prior size: 0.9 x 0.6 x 0.9 cm 2. 0.9 X 0.7 x 0.7 cm, lower , solid or almost completely solid, hypoechoic nodule, which is as sabino l as wide, with smooth margins, without echogenic foci. Prior size: 1.5 x 0.9 x 1.3 cm 3. 0.6 X 0.4 x 0.6 cm, lower , solid or almost completely solid, hypoechoic nodule, which is wider than tall, with smooth margins, without echogenic foci. Prior size: Not visualized LEFT: # of nodules measured on left: 1 1. 2.8 X 1.8 x 1.7 cm, upper , solid or almost completely solid, hypoechoic nodule, which is taller than wide, with smooth margins, without echogenic foci. Prior size: 2.8 x 1.8 x 2.3 cm Inferior to Left Thyroid lobe, an echogenic mass is visualized. 0.7 x 0.7 x 1.0cm. This was visuali zed on prior exam and labeled as a thyroid nodule. (0.8 x 0.5 x 0.8cm) ISTHMUS: # of nodules measured in the isthmus: 0 Bilateral neck scanned, no evidence of lymphadenopathy. IMPRESSION: Stable nonspecific thyroid nodularity.
== END | disposition home or self-care (01) ==
LOC: RADUSWWP 13:32
PROVIDERS: ATTEND Family Medicine
DX: E04.2 Nontoxic multinodular goiter (principal)
CPT/HCPCS: 76536

== ENCOUNTER → 2023-05-06 | Outpatient (CLI) | payer MEDICARE, OTHER ==
[2023-05-06 09:08] LABS: African American GFR (CKD) 82 (>60 ml/min/1.73 sqM); Blood Urea Nitrogen 23 mg/dL (7-17); Non-African American GFR(CKD) 71 (>60 ml/min/1.73 sqM)
--- NOTE | 2023-05-06 14:35 | CT ---
EXAMINATION TYPE: CT chest w con CT DLP: 638 mGycm, Automated exposure control for dose reduction was used. DATE OF EXAM: 05/06/2023 9:33 AM COMPARISON: CT 05/31/2022 . CLINICAL INDICATION:Female, 62 years old with history of I10 essential HTN; PHH, Essential HTN TECHNIQUE: Multiple axial images were obtained through the chest. Sagittal and coronal reformats were created for review. Contrast used:100 ml mL of Isovue 300 with IV Contrast (None if empty) Oral contrast used: (None if empty) FINDINGS: LOWER NECK: No acute findings. Slightly heterogeneous thyroid with enlargement of the left lobe, omaira lar to prior. HEART: Mildly enlarged without pericardial effusion. Pericardial fat is prominent. No significant cor onary calcifications. VASCULATURE: Aorta enhances normally without evidence of aneurysm or dissection. Pulmonary show gross ly normal enhancement with no evidence of filling defect in the limitations of the exam. Pulmonary tr unk is nonenlarged. MEDIASTINUM: No gross evidence of adenopathy. Postoperative changes at the GE junction could be from fundoplication. LUNGS/ PLEURA: Subcentimeter pulmonary nodules previously identified remain stable, at least one of w hich is calcified. No new or enlarging nodule, mass, consolidation, pleural effusion, pneumothorax. AIRWAY: Central airways patent and unremarkable. MUSCULOSKELETAL: No acute bony abnormality. Mild degenerative changes of the thoracic spine. SOFT TISSUES: Nonenlarged bilateral axillary nodes. Heterogeneous breast parenchyma bilaterally. UPPER ABDOMEN: Suspect mild diffuse fatty infiltration of the liver. Portal veins are enhancing. Mild fatty infiltration of the pancreas without acute abnormality. No mass of the visualized adrenals. IMPRESSION: 1. No acute chest abnormality. 2. Enlargement of the left thyroid lobe, similar to previous. 3. Continued stable subcentimeter bilateral pulmonary nodules, highly likely benign.
== END | disposition home or self-care (01) ==
LOC: RADCTMAIN 08:29
PROVIDERS: ATTEND Internal Medicine Hematology & Oncology
DX: R91.8 Other nonspecific abnormal finding of lung field (principal); E04.9 Nontoxic goiter, unspecified; I10 Essential (primary) hypertension; D50.9 Iron deficiency anemia, unspecified; D72.829 Elevated white blood cell count, unspecified
CPT/HCPCS: 82565; 84520; 71260; 36415; Q9967

== ENCOUNTER → 2023-07-23 | Outpatient (CLI) | payer MEDICARE, OTHER ==
--- NOTE | 2023-07-24 18:40 | MM ---
Reason for Exam: Screening (asymptomatic). Last mammogram was performed 1 year(s) and 2 month(s) ago. Patient History: Menarche at age 11. First Full-Term at age 24. Left ovary removed at age 54. Right ovary removed at age 54. Hysterectomy at age 54. Postmenopausal. Currently using Estrogen, beginning at age 54 for 5 years. Risk Values: Kesha 5 year model risk: 1.8%. NCI Lifetime model risk: 7.2%. Prior Study Comparison: 03/17/2021 Left Diagnostic Mammogram, [facility]. 02/07/2022 Left MG 3D diag mammo w/cad LT, [facility]. 05/21/2022 Bilateral MG 3D screening mammo w/cad, [facility]. Tissue Density: There are scattered areas of fibroglandular density. Findings: Analyzed By CAD. There is an asymmetric density far posteriorly and centrally on the left MLO view for which further evaluation is recommended. Otherwise, no significant change. Overall Assessment: Incomplete: need additional imaging evaluation, BI-RAD 0 Management: Special View Mammogram of the left breast. Diagnostic Breast Ultrasound of the left breast. Additional views to include spot 3-D MLO, 3-D lateral (to include far posterior tissue), 3-D XCCL, and 3-D XCCM views. Targeted left breast ultrasound if any persisting abnormality. [facility] will attempt to contact patient to return for supplemental views and ultrasound if indicated. Electronically signed and approved by: Guero Andujar M.D. Radiologist
== END | disposition home or self-care (01) ==
LOC: RADMAMWWP 13:25
PROVIDERS: ATTEND Family Medicine
DX: Z12.31 Encounter for screening mammogram for malignant neoplasm of breast (principal); Z78.0 Asymptomatic menopausal state
CPT/HCPCS: 77063; 77067

== ENCOUNTER → 2023-07-29 | Outpatient (CLI) | payer MEDICARE, OTHER ==
--- NOTE | 2023-07-29 14:42 | MM ---
Reason for Exam: Additional evaluation requested from abnormal screening. Last screening mammogram was performed less than 1 month ago. Patient History: Menarche at age 11. First Full-Term at age 24. Left ovary removed at age 54. Right ovary removed at age 54. Hysterectomy at age 54. Postmenopausal. Currently using Estrogen, beginning at age 54 for 5 years. Risk Values: Kesha 5 year model risk: 1.8%. NCI Lifetime model risk: 7.2%. Prior Study Comparison: 02/07/2022 Left MG 3D diag mammo w/cad , [facility]. 05/21/2022 Bilateral MG 3D screening mammo w/cad, [facility]. 07/23/2023 Bilateral MG 3D screening mammo w/cad, [facility]. Tissue Density: Left: There are scattered areas of fibroglandular density. Findings: Analyzed By CAD. There is persistent, circumscribed, 1 cm oval mass far posterior central outer aspect of the left breast, suspected 4:00 position. Further ultrasound evaluation recommended. Overall Assessment: Incomplete: need additional imaging evaluation, BI-RAD 0 Management: Diagnostic Breast Ultrasound of the left breast. 2-5 o'clock. Electronically signed and approved by: Guero Andujar M.D. Radiologist
--- NOTE | 2023-07-29 15:37 | USB ---
Reason for Exam: Additional evaluation requested from abnormal screening. Patient History: Menarche at age 11. First Full-Term at age 24. Left ovary removed at age 54. Right ovary removed at age 54. Hysterectomy at age 54. Postmenopausal. Currently using Estrogen, beginning at age 54 for 5 years. Risk Values: Kesha 5 year model risk: 1.8%. NCI Lifetime model risk: 7.2%. Technique: Method: Targeted. Prior Study Comparison: 02/07/2022 Left MG 3D diag mammo w/cad , [facility]. 05/21/2022 Bilateral MG 3D screening mammo w/cad, [facility]. 07/23/2023 Bilateral MG 3D screening mammo w/cad, [facility]. Findings: The lateral section of the breast of the left breast, the axilla of the left breast and the retroareolar of the left breast were scanned. Targeted ultrasound left breast 2 to 5:00 position including scanning of the subareolar region and axilla. Far out in the periphery of the 5:00 left breast, 16 cm from the nipple, there is a slightly lobulated cyst measuring 1.2 x 1.0 x 0.6 cm. Likely mammographic correlate. Six-month follow-up mammogram recommended. Otherwise, a few scattered tiny cysts are noted in the periphery, 2:00 position are noted measuring up to 4 mm. No axillary lymphadenopathy. Overall Assessment: Probably benign, BI-RAD 3 Management: Diagnostic Mammogram of the left breast in 6 months. A clinical breast exam by your physician is recommended on an annual basis and results should be correlated with mammographic findings. This exam should not preclude additional follow-up of suspicious palpable abnormalities. Results were given to the patient verbally at the time of exam. Electronically signed and approved by: Guero Andujar M.D. Radiologist
== END | disposition home or self-care (01) ==
LOC: RADMAMWWP 14:16
PROVIDERS: ATTEND Family Medicine
DX: N60.12 Diffuse cystic mastopathy of left breast (principal); R92.322 Mammographic fibroglandular density, left breast; Z78.0 Asymptomatic menopausal state
CPT/HCPCS: 77065; 76642; G0279; 77061

== ENCOUNTER → 2024-09-25 | Outpatient (CLI) | payer MEDICARE, OTHER ==
--- NOTE | 2024-09-25 15:21 | MM ---
Reason for Exam: Additional evaluation requested from prior study. Last mammogram was performed 1 year(s) and 2 month(s) ago. Patient History: Menarche at age 11. First Full-Term at age 24. Left ovary removed at age 54. Right ovary removed at age 54. Hysterectomy at age 54. Postmenopausal. Estrogen, starting at age 54 for 5 years. Risk Values: Kesha 5 year model risk: 1.8%. NCI Lifetime model risk: 6.9%. Prior Study Comparison: 04/22/2000 Right Diagnostic Mammogram, [facility]. 04/22/2000 Right Diagnostic Ultrasound, [facility]. 06/09/2004 Bilateral Screening Mammogram, [facility]. 05/31/2006 Bilateral Screening Mammogram, [facility]. 10/06/2012 Bilateral Screening Mammogram, [facility]. 12/25/2013 Bilateral Screening Mammogram, [facility]. 01/27/2015 Bilateral Screening Mammogram, [facility]. 01/26/2020 Bilateral Screening Mammogram, [facility]. 01/29/2020 Right Diagnostic Mammogram, [facility]. 03/07/2021 Bilateral Screening Mammogram, [facility]. 03/17/2021 Left Diagnostic Mammogram, [facility]. 02/07/2022 Left MG 3D diag mammo w/cad LT, [facility]. 05/21/2022 Bilateral MG 3D screening mammo w/cad, [facility]. 07/23/2023 Bilateral MG 3D screening mammo w/cad, [facility]. 07/29/2023 Left MG 3D work up w/cad LT, [facility]. 07/29/2023 Left US breast workup limited LT, [facility]. Tissue Density: The breasts are heterogeneously dense, which may obscure small masses. Findings: Analyzed By CAD. No new suspicious masses, calcifications or distortions. Overall Assessment: Benign, BI-RAD 2 Management: Screening Mammogram of both breasts in 1 year. Results were given to the patient verbally at the time of exam. Patient should continue monthly self-breast exams. A clinical breast exam by your physician is recommended on an annual basis. This exam should not preclude additional follow-up of suspicious palpable abnormalities. Note on Kesha scores and lifetime risk: 1. A Kesha score greater than 3% is considered moderate risk. If this is the case, consider specialist referral to assess eligibility for a risk reducing agent. 2. If overall lifetime risk for the development of breast cancer is 20% or higher, the patient may qualify for future screening with alternating mammogram and breast MRI. [facility], , 09/25/2024 3:15 PM. Electronically signed and approved by: Jay Boone DO
--- NOTE | 2024-09-26 10:59 | US ---
EXAMINATION TYPE: US thyroid st tissue head/neck DATE OF EXAM: 09/25/2024 COMPARISON: (08/10/2022) CLINICAL INDICATION: Female, 64 years old with history of E04.2 THYROID NODULES; f/u TECHNIQUE: Grayscale and color Doppler imaging of the thyroid gland. FINDINGS: GLAND SIZE: Right Lobe: 4.3x1.7x1.6 cm Overall Parenchyma: heterogeneous Left Lobe: 4.4x1.6x2.2 cm Overall Parenchyma: heterogeneous Isthmus Thickness: 0.5 cm NODULES RIGHT: # of nodules measured on right: 3 1. 1.1 X 0.6 x 1.1 cm, mid mid, Prior size: 0.9 x 0.6 x 0.9 cm TIRADS Score: 0 TIRADS Category 1: Benign Composition: Cystic or almost completely cystic (0 points). Recommendation: No FNA 2. 0.5 X 0.3 x 0.5 cm, mid mid, TIRADS Score: 0 TIRADS Category 1: Benign Composition: Cystic or almost completely cystic (0 points). Recommendation: No FNA 3. 0.6 X 0.6 x 0.4 cm, mid mid, Prior size: 0.6 x 0.4 x 0.6 cm TIRADS Score: 3 TIRADS Category 3: Composition: Mixed cystic and solid (1 point). Echogenicity: Hypoechoic (2 points). Shape: Wider than tall (0 points). Margin: Smooth (0 points). Echogenic foci: None or large comet-tail artifacts (0 points) Recommendation: If >2.5cm: FNA; If >1.5cm: Follow up at 1,3,5 years LEFT: # of nodules measured on left: 1 1. 2.8 X 1.6 x 2.0 cm, mid mid, Prior size: 2.8 x 1.8 x 1.7 cm TIRADS Score: 3 TIRADS Category 3: Composition: Solid or almost completely solid (2 points). Echogenicity: Hyperechoic or isoechoic (1 point). Shape: Wider than tall (0 points). Margin: Smooth (0 points). Echogenic foci: None or large comet-tail artifacts (0 points) Recommendation: If >2.5cm: FNA; If >1.5cm: Follow up at 1,3,5 years ISTHMUS: # of nodules measured in the isthmus: 0 Bilateral neck scanned, no evidence of lymphadenopathy. IMPRESSION: Left thyroid TIRADS Category 3 nodule that meet criteria for fine-needle aspiration. TI-RADS assessment score and recommendation for follow-up based on appropriate scoring and treatment protocols. TR3: If nodule size is ? 2.5 cm, FNA is recommended. If nodule size is ? 1.5 cm, follow-up imaging at 1, 3, and 5 years is recommended. TR4: If nodule size is ? 1.5 cm, FNA is recommended. If nodule size is ? 1.0 cm, follow-up imaging at 1, 2, 3, and 5 years is recommended. TR5: If nodule size is ? 1.0 cm, FNA is recommended. If nodule size is ? 0.5 cm, annual follow-up for up to 5 years is recommended. [email or web address] [facility], , 09/26/2024 10:56 AM
== END | disposition home or self-care (01) ==
LOC: RADMAMWWP 14:41
PROVIDERS: ATTEND Family Medicine
DX: R92.8 Other abnormal and inconclusive findings on diagnostic imaging of breast (principal); E04.2 Nontoxic multinodular goiter; R92.333 Mammographic heterogeneous density, bilateral breasts; Z78.0 Asymptomatic menopausal state
CPT/HCPCS: 77066; 76536; G0279; 77062

== ENCOUNTER 2024-11-19 08:17 | Day surgery (SDC) | payer MEDICARE, OTHER ==
[2024-11-19 09:20] VITALS: RESP 18; TEMP 98.1
[2024-11-19 10:16] VITALS: BP 125/68; PULSE 67
--- NOTE | 2024-11-19 10:23 | US ---
EXAMINATION TYPE: US FNA thyroid first lesion DATE OF EXAM: 11/19/2024 9:55 AM COMPARISON: 09/25/2024 CLINICAL INDICATION: Female, 64 years old with history of E04.1 thyroid nodules, referred for biopsy, RADIOLOGIST: Dr. Andujar PROCEDURE: An initial scanning should be heterogeneous isoechoic. 3 left mid pole nodule measuring 2.8 cm. This is targeted for FNA. The procedure, along with the risks and complications were discussed with the patient. Patient agreed to proceed with the procedure. A consent was signed and placed in patient's chart. Maximum sterile barrier technique was utilized. Timeout was performed by myself. The left side of the neck was sterilely prepped and draped in the usual fashion. 5 milliliters of 1% Lidocaine were utili zed to anesthetize the superficial and deep soft tissues. Following that, under ultrasound guidance, 5 passes were made into the nodule with 5 cc syringe sucti on. After each pass, the sample was placed on a slide and then sent for pathology. Upon conclusion, hemostasis was achieved, bandage placed, and patient was discharged home in satisfac tory condition. IMPRESSION: Successful FNA of the 2.8 cm TR3 left midpole nodule. Pathology pending. [facility], , 11/19/2024 10:20 AM
== END 2024-11-19 10:15 | disposition home or self-care (01) ==
LOC: RADPROMAIN 08:17
PROVIDERS: ATTEND Family Medicine
DX: E04.1 Nontoxic single thyroid nodule (principal)
CPT/HCPCS: 10005; 88173; 88305